=== PATIENT | female | born 1985 | race Caucasian/White ===

== ENCOUNTER → 2020-05-17 | Outpatient (REF) | payer OTHER | LOC: M SFHCWAGY 17:18 | PROVIDERS: ATTEND Nurse Practitioner Family | DX: Z12.4 Encounter for screening for malignant neoplasm of cervix (principal) | CPT/HCPCS: 87624; G0123; G0463 ==

== ENCOUNTER → 2020-09-08 | Outpatient (REF) | payer OTHER ==
[2020-09-08 18:11] LABS: APPEARANCE, URINE MANUAL HAZY (CLEAR); COLOR, URINE MANUAL ORANGE (YELLOW)
[2020-09-08 18:14] LABS: BLOOD URINE MANUAL POSITIVE (NEGATIVE); GLUCOSE, URINE (UA) MANUAL NEGATIVE (NEGATIVE)
[2020-09-08 18:15] LABS: BILIRUBIN, URINE MANUAL OBSCURED (NEGATIVE); KETONE, URINE MANUAL OBSCURED mg/dL (NEGATIVE); LEUKOCYTE ESTERASE, URINE MAN OBSCURED (NEGATIVE); NITRITE, URINE MANUAL OBSCURED (NEGATIVE); PROTEIN, URINE MANUAL OBSCURED mg/dL (NEGATIVE); UROBILINOGEN, URINE MANUAL OBSCURED mg/dl (NORMAL)
[2020-09-08 18:25] LABS: RBC, URINE TNTC /hpf (0-3); WBC, URINE TNTC /hpf (0-3)
[2020-09-08 18:26] LABS: BACTERIA, URINE MOD AMOUNT; CALCIUM OXALATE CRYSTALS,URINE MOD AMOUNT /hpf; SQUAMOUS EPITHELIAL CELL URINE SMALL AMOUNT /hpf (SMALL AMT)
[2020-09-08 18:27] LABS: HYALINE CAST, URINE 0-1 /lpf (0-1)
== END ==
LOC: M LAB REF 17:04
PROVIDERS: ATTEND Physician Assistant Medical
DX: R30.0 Dysuria (principal)

== ENCOUNTER → 2021-03-18 | Outpatient (CLI) | payer OTHER ==
--- NOTE | 2021-03-18 20:03 | ECHO ---
ECHOCARDIOGRAM DATE OF PROCEDURE: 03/18/2021 Age: 35 Gender: Female Height: 61 inches Weight: 207 pounds Body Surface Area: 1.92 m2 PATIENT LOCATION: Outpatient. REFERRING PROVIDER: Timi Stewart INDICATION: Palpitations. MEASUREMENTS: 2D Measurements: RV - 4.0 cm LV - 5.0 cm Septum 1.2 cm Posterior wall 1.2 cm Aortic root 3.6 cm LA - 4.2 cm LVEF 65% Doppler Measurements: LV - 1.76 m/sec LVOT - 0.8 m/sec LVOT diameter 2.3 cm MV-E 84, A 85, EA ratio 1 Early mitral deceleration time 183 msec E prime medial 7.5 A prime medial 10.9 E prime lateral 11.9 Average E/E ratio 8.7/PCWP 12.6 mmHg PV - 0.8 m/sec Pulmonary artery acceleration time 130 msec PASP 24 mmHg IVC - 2.0 cm COMMENTS: Normal sinus rhythm without intraventricular conduction disturbance. M-mode and 2-dimensional echocardiography was performed with pulse, continuous wave, color flow and tissue Doppler studies. Borderline left ventricular hypertrophy with normal wall motion. Mildly dilated left atrium with evidence of grade 1 left ventricular (LV) diastolic dysfunction, but currently normal estimated mean left atrial pressure. Right heart chamber sizes were upper limits of normal with normal wall motion and estimated pulmonary arterial pressure. Normal inferior vena cava (IVC) size and collapse against an elevated central venous pressure. Normal aortic dimensions. Bicuspid aortic valve with commissures at the 4 o'clock and 9 o'clock positions. Adequate cusp separation despite thickening of the cusp edges. Moderate aortic insufficiency. Normal appearing mitral valve and mitral leaflet excursion with no posterior systolic buckling. Trace mitral insufficiency. Normal appearing tricuspid valve with very mild insufficiency. No apparent intracardiac mass or pericardial effusion.
== END ==
LOC: M CARPUL 13:09
PROVIDERS: ATTEND Physician Assistant
DX: R00.2 Palpitations (principal)

== ENCOUNTER → 2021-05-15 | Outpatient (CLI) | payer OTHER ==
--- NOTE | 2021-05-15 19:16 | ECHO ---
ECHOCARDIOGRAM DATE OF PROCEDURE: 05/15/2021 Age: 35 Gender: Female Height: 61 inches Weight: 213 pounds Body surface area: 1.94 m2 PATIENT LOCATION: Outpatient/ REFERRING PROVIDER: Chetan Lua D.O. INDICATION: Thoracic aorta. MEASUREMENTS: 2D Measurements: RV - 4.0 cm LV - 5.5 cm Septum 1.1 cm Posterior wall 1.1 cm Aortic root 3.9 cm Ascending aorta 3.9 cm LA - 3.7 cm LVEF 65% Doppler Measurements: AV - 1.6 m/sec LVOT - 0.8 m/sec LVOT diameter 2.2 cm MV-E 93, A 86, EA ratio 1.1 Early mitral deceleration time 230 msec E prime medial 7.4 A prime medial 10 E prime lateral 12.5 PV - 0.75 m/sec Pulmonary artery acceleration time 123 msec PASP - 26 mmHg IVC - 1.5 cm COMMENTS: Normal sinus rhythm without intraventricular conduction disturbance. M-mode and 2-dimensional cardiography was performed with pulse, continuous wave, color flow and tissue Doppler studies. Normal left ventricular size, wall thickness and wall motion. Normal left atrial and Doppler assessment of left ventricular (LV) diastolic function and estimated mean left atrial pressure. Normal right heart chamber sizes and motion and estimated pulmonary arterial pressure. Aortic root diameter upper limits of normal, but slightly dilated ascending aorta. Normal inferior vena cava (IVC) size and collapse against an elevated central venous pressure. Three equal size aortic cusps with slight thickening of the cusp edges, but adequate cusp separation. Mild to [id number] insufficiency. Normal appearing and functioning mitral valvular apparatus with no prolapse and at most, mild insufficiency. Normal appearing tricuspid valve with very mild insufficiency. No apparent intracardiac mass or pericardial effusion.
== END ==
LOC: M CARPUL 11:16
PROVIDERS: ATTEND Obstetrics & Gynecology
DX: O24.913 Unspecified diabetes mellitus in pregnancy, third trimester (principal); Z3A.29 29 weeks gestation of pregnancy; O99.413 Diseases of the circulatory system complicating pregnancy, third trimester; I71.2 Thoracic aortic aneurysm, without rupture

== ENCOUNTER 2021-06-17 10:47 | Outpatient (CLI) | payer OTHER ==
[~2021-06-17] VITALS: Ht 157.5 cm; Wt 97.7 kg
[~2021-06-17 10:47] MED LIST: B-650TAB2; CVS1CAP2 PO; FAMO1TAB11; METO1TAB87; PRENTAB53 PO
[2021-06-17 11:52] LABS: HEMATOCRIT 42.8 % (36.0-47.0); MEAN CORPUSCULAR HEMOGLOBIN 28.7 pg (27.0-33.0); MEAN CORPUSCULAR HGB CONC 32.7 g/dl (32.0-36.5); MEAN CORPUSCULAR VOLUME 87.7 fl (80.0-96.0); PLATELET COUNT, AUTOMATED 193 10^3/uL (150-450); RED BLOOD COUNT 4.88 10^6/uL (4.00-5.40); WHITE BLOOD COUNT 10.5 10^3/uL (4.0-10.0)
[2021-06-17 12:02] LABS: INR 0.96; PROTHROMBIN TIME 13.2 SECONDS (12.7-14.5)
[2021-06-17 12:03] LABS: PARTIAL THROMBOPLASTIN TIME 23.9 SECONDS (25.9-37.0)
[2021-06-17 12:23] LABS: ALBUMIN 2.8 GM/DL (3.2-5.2); ALT/SGPT 13 U/L (12-78); BILIRUBIN,TOTAL 0.4 MG/DL (0.2-1.0); BLOOD UREA NITROGEN 8 MG/DL (7-18); CALCIUM LEVEL 10.1 MG/DL (8.5-10.1); CARBON DIOXIDE LEVEL 21 MEQ/L (21-32); CHLORIDE LEVEL 114 MEQ/L (98-107); CREATININE FOR GFR 0.66 MG/DL (0.55-1.30); GLOMERULAR FILTRATION RATE > 60.0 (>60); GLUCOSE, FASTING 67 MG/DL (70-100); POTASSIUM SERUM 4.5 MEQ/L (3.5-5.1); SODIUM LEVEL 141 MEQ/L (136-145); TOTAL PROTEIN 6.1 GM/DL (6.4-8.2)
== END 2021-06-17 16:07 | disposition home or self-care (01) ==
LOC: M LDO 10:47
PROVIDERS: ATTEND Registered Nurse
DX: O26.893 Other specified pregnancy related conditions, third trimester (principal); R07.89 Other chest pain; Z3A.36 36 weeks gestation of pregnancy; O09.523 Supervision of elderly multigravida, third trimester

== ENCOUNTER 2021-06-20 10:54 | Outpatient (CLI) | payer OTHER ==
[2021-06-20 11:22] VITALS: BP 108/73
== END 2021-06-20 13:50 | disposition home or self-care (01) ==
LOC: M LDO 10:54
PROVIDERS: ATTEND Obstetrics & Gynecology
DX: O34.211 Maternal care for low transverse scar from previous cesarean delivery (principal); Z3A.36 36 weeks gestation of pregnancy; O99.213 Obesity complicating pregnancy, third trimester; E66.9 Obesity, unspecified; Z68.38 Body mass index [BMI] 38.0-38.9, adult; Z87.59 Personal history of other complications of pregnancy, childbirth and the puerperium; O09.523 Supervision of elderly multigravida, third trimester
CPT/HCPCS: 59025; G0378; G0463

== ENCOUNTER 2021-06-24 07:24 | Inpatient (IN) | payer OTHER ==
[~2021-06-24] VITALS: Ht 157.5 cm; Wt 99.6 kg
[2021-06-24] VITALS (9 sets, daily range): BP systolic 136–144; BP diastolic 76–97
[~2021-06-24 07:24] MED LIST changes: -FAMO1TAB11; +FAMO1TAB11 PO; -METO1TAB87; +METO1TAB87 PO
[2021-06-24] MEDS ORDERED: OXYTOCIN DRIP 30 UNITS in IV 1 EA IV PRN ×4 (08:00)
[2021-06-24] MEDS ORDERED: ceFAZolin SOD 2 GM in IV 1 EA IV ONE (08:00)
[2021-06-24] MEDS ORDERED: BICITRA 30ML SOLN UDC PO ONE (08:00)
[2021-06-24] MEDS: LR 1,000 ML IV SCH ×4 (08:36→20:35)
[2021-06-24 08:37] LABS: HEMATOCRIT 39.4 % (36.0-47.0); HEMOGLOBIN 13.1 g/dl (12.0-15.5); MEAN CORPUSCULAR HGB CONC 33.2 g/dl (32.0-36.5); MEAN CORPUSCULAR VOLUME 87.2 fl (80.0-96.0); PLATELET COUNT, AUTOMATED 180 10^3/uL (150-450); RED BLOOD COUNT 4.52 10^6/uL (4.00-5.40); WHITE BLOOD COUNT 8.6 10^3/uL (4.0-10.0)
[2021-06-24] MEDS ORDERED: ACETAMINOPHEN 1000MG 100ML IV BTL (OFIRMEV) (J0131 PER 10MG) As Ordered ONE (10:03)
[2021-06-24] MEDS ORDERED: KETOROLAC 60MG 2ML VIAL As Ordered ONE (10:03)
[2021-06-24] MEDS ORDERED: ONDANSETRON 4MG/2ML VIAL As Ordered ONE (10:03)
[2021-06-24] MEDS ORDERED: MORPHINE PRES-FREE INJ 10 MG/10 ML VIAL (J2274) As Ordered ONE (10:03)
[2021-06-24] MEDS ORDERED: diphenhydrAMINE 50MG/ML VIAL (J1200) IV PRN (10:35)
[2021-06-24] MEDS ORDERED: NALOXONE INJ 0.4MG/1ML VIAL (J2310 PER 1MG) IV PRN ×2 (10:35)
[2021-06-24] MEDS ORDERED: METOCLOPRAMIDE INJ 10MG/2ML VIAL (J2765 PER 1) IV PRN ×2 (10:35→13:10)
[2021-06-24] MEDS ORDERED: ONDANSETRON 4MG/2ML VIAL IV PRN ×3 (10:35→13:10)
[2021-06-24] MEDS ORDERED: NALBUPHINE HCL 10 MG/ML AMP (J2300) IV PRN (10:35)
[2021-06-24] MEDS ORDERED: ePHEDrine SULFATE 25 MG/5 ML(5MG/ML) SYRINGE As Ordered ONE (10:41)
[2021-06-24] MEDS ORDERED: OXYTOCIN 30 UNITS IN 0.9% NaCl 500ML IV BAG (J2590) As Ordered ONE ×3 (10:44→13:15)
[2021-06-24] MEDS ORDERED: METOCLOPRAMIDE INJ 10MG/2ML VIAL (J2765 PER 1) As Ordered ONE (10:56)
[2021-06-24 11:25] LABS: CORD GAS ABE A -6.6; CORD GAS HCO3 A 20.2 MEQ/L; CORD GAS O2 SAT A 49.7 %; CORD GAS PCO2 A 45.2 mmHg; CORD GAS PH A 7.269 UNITS; CORD GAS SBC A 18.1 MEQ/L; CORD GAS TCO2 A 21.6 MEQ/L
[2021-06-24 11:27] LABS: CORD GAS ABE V -2.8; CORD GAS O2 SAT V 72.7 %; CORD GAS PCO2 V 38.6 mmHg; CORD GAS PH V 7.374 UNITS; CORD GAS PO2 V 29.9 mmHg; CORD GAS SBC V 21.6 MEQ/L; CORD GAS TCO2 V 23.2 MEQ/L
[2021-06-24] MEDS ORDERED: fentaNYL 100 MCG/2 ML INJECTION As Ordered ONE (11:41)
[2021-06-24] MEDS ORDERED: propofoL 200 MG/20 ML VIAL As Ordered ONE (11:42)
[2021-06-24] MEDS ORDERED: RHOGAM 300 MCG (1500 IU) INJ (J2790) IM SCH (12:35)
[2021-06-24] MEDS ORDERED: PROMETHAZINE 25 MG TAB PO PRN (12:35)
[2021-06-24] MEDS ORDERED: MEASLES,MUMPS,RUBELLA VACCINE INJ (MMR-II) (90707) SC SCH (12:35)
[2021-06-24] MEDS ORDERED: oxyCODONE 5MG TAB PO PRN ×2 (12:35)
[2021-06-24] MEDS ORDERED: LR 1,000 ML IV SCH (13:10)
[2021-06-24] MEDS ORDERED: fentaNYL 100 MCG/2 ML INJECTION IV PRN (13:10)
[2021-06-24] MEDS ORDERED: PERCOCET 5MG/325MG TAB PO PRN (13:10)
[2021-06-24] MEDS: KETOROLAC 30 MG/ML 1ML VIAL IV SCH ×2 (17:47→23:59)
[2021-06-24] MEDS: ACETAMINOPHEN 500 MG TAB PO SCH (17:47)
[2021-06-24] MEDS: DOCUSATE SODIUM 100MG CAPSULE PO SCH (21:38)
[2021-06-24] MEDS: METOPROLOL TART 25 MG TABLET PO SCH (21:39)
[2021-06-25 02:00] VITALS: BP 141/81
[2021-06-25] MEDS: LR 1,000 ML IV SCH ×3 (04:35→20:35)
[2021-06-25] MEDS: KETOROLAC 30 MG/ML 1ML VIAL IV SCH (05:28)
[2021-06-25] MEDS: ACETAMINOPHEN 500 MG TAB PO SCH ×4 (05:28→18:09)
[2021-06-25 06:00] VITALS: BP 124/75
[2021-06-25 06:29] LABS: HEMATOCRIT 33.3 % (36.0-47.0); MEAN CORPUSCULAR HEMOGLOBIN 29.2 pg (27.0-33.0); MEAN CORPUSCULAR VOLUME 88.3 fl (80.0-96.0); PLATELET COUNT, AUTOMATED 173 10^3/uL (150-450); RED BLOOD COUNT 3.77 10^6/uL (4.00-5.40); WHITE BLOOD COUNT 11.8 10^3/uL (4.0-10.0)
[2021-06-25] MEDS: DOCUSATE SODIUM 100MG CAPSULE PO SCH ×2 (08:45→21:20)
[2021-06-25] MEDS: PRENATAL VITAMINS CHEWABLE TABLET PO SCH (08:45)
[2021-06-25] MEDS ORDERED: PRENATAL VITAMINS CHEWABLE TABLET PO SCH (09:00)
[2021-06-25] MEDS: METOPROLOL TART 25 MG TABLET PO SCH ×2 (10:07→21:22)
[2021-06-25 10:15] VITALS: BP 119/69
[2021-06-25] MEDS: IBUPROFEN 800 MG TAB PO SCH ×2 (13:01→21:21)
[2021-06-25 14:06] VITALS: BP 139/68
[2021-06-25 18:00] VITALS: BP 134/64
[2021-06-25] MEDS: SIMETHICONE 80MG CHEW TAB PO PRN (18:15)
[2021-06-25 22:00] VITALS: BP 157/90
[2021-06-26] MEDS: ACETAMINOPHEN 500 MG TAB PO SCH ×2 (00:13→05:19)
[2021-06-26 02:00] VITALS: BP 134/73
[2021-06-26] MEDS: LR 1,000 ML IV SCH (04:35)
[2021-06-26] MEDS: IBUPROFEN 800 MG TAB PO SCH (05:20)
[2021-06-26 05:50] VITALS: BP 139/84
[2021-06-26] MEDS ORDERED: ACET-683 PO (07:23)
[2021-06-26] MEDS ORDERED: COLA100C5 PO (07:23)
[2021-06-26] MEDS ORDERED: IBUP80TA PO (07:23)
[2021-06-26 08:30] VITALS: BP 139/84
[2021-06-26] MEDS: SIMETHICONE 80MG CHEW TAB PO PRN (09:42)
[2021-06-26] MEDS: DOCUSATE SODIUM 100MG CAPSULE PO SCH (09:42)
[2021-06-26] MEDS: PRENATAL VITAMINS CHEWABLE TABLET PO SCH (09:42)
[2021-06-26 09:52] VITALS: BP 140/67
[2021-06-26] MEDS: METOPROLOL TART 25 MG TABLET PO SCH (09:52)
[2021-06-26 09:55] VITALS: BP 140/67
== END 2021-06-26 11:05 | disposition home or self-care (01) | DRG 784 ==
LOC: M LDI 07:24 → M OBS 13:50
PROVIDERS: ADMIT Obstetrics & Gynecology; ATTEND Obstetrics & Gynecology
PROC: 0UB70ZZ Excision of Bilateral Fallopian Tubes, Open Approach (ICD-10-PCS; 2021-06-24)
PROC: 10D00Z1 Extraction of Products of Conception, Low, Open Approach (ICD-10-PCS; principal; 2021-06-24 09:30)
DX: O34.211 Maternal care for low transverse scar from previous cesarean delivery (principal); O10.92 Unspecified pre-existing hypertension complicating childbirth; Q25.44 Congenital dilation of aorta; Z37.0 Single live birth; Z3A.37 37 weeks gestation of pregnancy; O09.523 Supervision of elderly multigravida, third trimester; E66.9 Obesity, unspecified; O99.214 Obesity complicating childbirth; O24.425 Gestational diabetes mellitus in childbirth, controlled by oral hypoglycemic drugs; Z30.2 Encounter for sterilization

== ENCOUNTER → 2022-02-05 | Outpatient (REF) | payer OTHER ==
[~2022-02-05] MED LIST changes: +ACET-683 PO; +COLA100C5 PO; +IBUP80TA PO
[2022-02-05 22:27] LABS: APPEARANCE, URINE MANUAL TURBID (CLEAR)
[2022-02-05 22:28] LABS: COLOR, URINE MANUAL RED (YELLOW)
[2022-02-05 22:29] LABS: GLUCOSE, URINE (UA) MANUAL NEGATIVE (NEGATIVE); PROTEIN, URINE MANUAL 3+ mg/dL (NEGATIVE)
[2022-02-05 22:30] LABS: BILIRUBIN, URINE MANUAL OBSCURED (NEGATIVE); BLOOD URINE MANUAL POSITIVE (NEGATIVE); KETONE, URINE MANUAL OBSCURED mg/dL (NEGATIVE); LEUKOCYTE ESTERASE, URINE MAN POSITIVE (NEGATIVE); NITRITE, URINE MANUAL OBSCURED (NEGATIVE); UROBILINOGEN, URINE MANUAL OBSCURED mg/dl (NORMAL)
[2022-02-05 22:35] LABS: BACTERIA, URINE NONE SEEN; HYALINE CAST, URINE NONE SEEN /lpf (0-1); RBC, URINE TNTC /hpf (0-3); SQUAMOUS EPITHELIAL CELL URINE NONE SEEN /hpf (SMALL AMT); WBC, URINE TNTC /hpf (0-3)
== END ==
LOC: M LAB REF 21:38
PROVIDERS: ATTEND Physician Assistant Medical
DX: N39.0 Urinary tract infection, site not specified (principal)